=== PATIENT | female | born 1950 | race Two or more races ===

== ENCOUNTER 2021-03-08 11:33 | Day surgery (SDC) | payer MEDICARE | END 2021-03-08 23:21 | disposition home or self-care (01) | LOC: ATC 11:33 | DX: U07.1 COVID-19 (principal) | CPT/HCPCS: 96365; Q0243 ==

== ENCOUNTER → 2022-04-20 | Outpatient (CLI) | payer MEDICARE | END | disposition home or self-care (01) | LOC: LAB SHORT 11:03 → PLD 11:03 | DX: D48.5 Neoplasm of uncertain behavior of skin (principal) | CPT/HCPCS: 88305 ==

== ENCOUNTER → 2023-03-07 | Outpatient (CLI) | payer MEDICARE | END | disposition home or self-care (01) | LOC: LAB 12:06 → LAB SHORT 12:06 | DX: D48.5 Neoplasm of uncertain behavior of skin (principal) | CPT/HCPCS: 88305 ==

== ENCOUNTER → 2023-04-27 | Outpatient (CLI) | payer MEDICARE | END | disposition home or self-care (01) | LOC: LAB SHORT 07:47 → LAB 07:47 | DX: C44.629 Squamous cell carcinoma of skin of left upper limb, including shoulder (principal) | CPT/HCPCS: 88305 ==

== ENCOUNTER 2024-09-23 07:10 | Day surgery (SDC) | payer OTHER ==
[~2024-09-23] VITALS: Ht 157.5 cm; Wt 56.0 kg
[~2024-09-23 07:10] MED LIST: FORMOTEROL20 MCG/2 M INH; Vitamin B-12100 MCG PO
[2024-09-23] MEDS ORDERED: propofoL 50 ML IV ONE (07:26)
[2024-09-23] MEDS ORDERED: Lactated Ringer's 1,000 ML IV ONE ×2 (07:26→08:07)
[2024-09-23] MEDS ORDERED: Glycopyrrolate 0.2 MG/ML 1MLVIAL ONE (09:41)
--- NOTE | 2024-09-23 09:44 | NUR ---
09/23/24 0944 Estella Maria PT WANTED TO WAKE UP WHEN COMING OUT FROM [facility].
[2024-09-23 10:17] VITALS: BP 136/71
== END 2024-09-23 10:15 | disposition home or self-care (01) ==
LOC: ORSCSDS 07:10
PROVIDERS: Internal Medicine Gastroenterology
PROC: 0DBM8ZX Excision of Descending Colon, Via Natural or Artificial Opening Endoscopic, Diagnostic (ICD-10-PCS; principal; 2024-09-23 08:30)
PROC: 0DB78ZX Excision of Stomach, Pylorus, Via Natural or Artificial Opening Endoscopic, Diagnostic (ICD-10-PCS; principal; 2024-09-23 08:30)
DX: Z12.11 Encounter for screening for malignant neoplasm of colon (principal); R13.10 Dysphagia, unspecified; D12.4 Benign neoplasm of descending colon; Z80.0 Family history of malignant neoplasm of digestive organs; K64.8 Other hemorrhoids; K22.10 Ulcer of esophagus without bleeding; K57.30 Diverticulosis of large intestine without perforation or abscess without bleeding; F17.210 Nicotine dependence, cigarettes, uncomplicated
CPT/HCPCS: 88305; 88342; J2704; J7120